=== PATIENT | male | born 1965 | race African-American/Black ===

== ENCOUNTER 2019-07-22 14:01 | Emergency (ER) | payer MEDICAID ==
[~2019-07-22] VITALS: Ht 190.5 cm; Wt 91.0 kg
[2019-07-22 17:18] LABS: BASOPHILS % 0.7 % (0.0-2.0); EOSINOPHILS % 3.7 % (0.0-5.0); HEMATOCRIT. 31.8 % (42.0-52.0); HEMOGLOBIN. 10.6 g/dL (14.0-18.0); LYMPHOCYTES % 38.8 % (20.0-50.0); MEAN CORPUSCULAR VOLUME 90.2 fL (80.0-94.0); MEAN PLATELET VOLUME 6.7 fl (7.4-10.4); MONOCYTES % 8.9 % (2.0-8.0); NEUTROPHILS % 47.9 % (40.0-76.0); PLATELET 303 x1000/uL (130-400); RED BLOOD CELL COUNT 3.53 mill/uL (4.7-6.1); RED CELL DISTRIBUTION WIDTH 15.3 % (11.6-14.6)
[2019-07-22 17:23] LABS: CHLORIDE 106 mEq/L (98-107)
[2019-07-22 17:25] LABS: D-DIMER 0.51 mg/L FEU (<0.50); PROTHROMBIN TIME 10.1 sec (9.6-11.0)
[2019-07-22 17:33] LABS: C REACTIVE PROTEIN CARDIAC 0.41 mg/L (0.00-3.00)
[2019-07-22 18:08] VITALS: BP 140/80
== END 2019-07-22 18:11 | disposition home or self-care (01) ==
LOC: ER 14:01
DX: R60.0 Localized edema (principal); R73.9 Hyperglycemia, unspecified; D64.9 Anemia, unspecified; F17.200 Nicotine dependence, unspecified, uncomplicated
CPT/HCPCS: 36415; 83880; 84550; 85379; 85651; 86141; 93970; 99284